=== PATIENT | female | born 1950 | race Caucasian/White ===

== ENCOUNTER 2018-03-30 07:13 | Day surgery (SDC) | payer MEDICARE ==
[2018-03-22 09:27] VITALS: BMI 20.7
[~2018-03-30 07:13] MED LIST: Lactated Ringer's 500 ML IV ONE; Phenylephrine 2.5% Opht Soln OD SCH; Tropicamide 0.5% Opht Sol OD SCH
[2018-03-30] MEDS ORDERED: Tetracaine 0.5% Ophth (OR ONLY) ONE (07:30)
[2018-03-30] MEDS ORDERED: Carbachol 0.01% IO ONE (07:30)
[2018-03-30] MEDS ORDERED: Tobramycin/Dexamethasone OPHT OINT ONE (07:30)
[2018-03-30] MEDS ORDERED: Povidone Iodine Ophthalmic 5% Soln ONE (07:30)
[2018-03-30] MEDS ORDERED: Hyaluronidase Human, Recombi 150 U/ML VIAL ONE (07:31)
[2018-03-30] MEDS ORDERED: Chondroitin/Hyaluronate Opth Syringe KIT (0.55 ml-0.5 ml) IO ONE (07:31)
[2018-03-30] MEDS ORDERED: Lidocaine 2% MPF (5 ml) Inj ONE (07:33)
[2018-03-30] MEDS ORDERED: Lactated Ringer's 1,000 ML IV ONE (08:09)
[2018-03-30] MEDS ORDERED: Propofol 10 mg/ml Inj (20 ML) ONE (09:36)
[2018-03-30] MEDS ORDERED: Midazolam 2 MG/2 ML VIAL ONE (09:36)
[2018-03-30] MEDS ORDERED: Lactated Ringer's 500 ML IV ONE ×2 (10:10)
[2018-03-30 11:53] VITALS: BP 118/58; PULSE 74; RESP 18; TEMP 97.6; O2SAT 98
--- NOTE | 2018-03-30 19:05 | OP ---
Copied To: Aleksander Valdez MD Attending MD: Aleksander Valdez MD PROCEDURE DATE: 03/30/2018 PREOPERATIVE DIAGNOSIS: Hypermature complex cataract, right eye. POSTOPERATIVE DIAGNOSIS: Hypermature complex cataract, right eye. OPERATIVE PROCEDURE: Complex cataract surgery, right eye with lens implant due to hypermaturity. SURGEON: Aleksander Valdez MD ANESTHESIA: Retrobulbar block. ESTIMATED BLOOD LOSS: Zero. COMPLICATIONS: None. DESCRIPTION OF PROCEDURE: The patient was brought to the operating room and properly identified. Anesthesia staff administered intravenous sedation and retrobulbar block was given to the surgical eye. The patient was then prepped and draped in the usual sterile fashion. Attention was turned to the surgical eye. A lid speculum was placed into interpalpebral fissure. Sitting temporally, two paracentesis incisions were made. The anterior chamber was filled with viscoelastic and a triplanar clear corneal incision was made. Using a cystitome, anterior capsular leaflet was created. Utrata forceps were used to create a continuous curvilinear capsulorrhexis. Balanced salt solution on a cannula was used to hydrodissect and hydrodelineate the lens. The lens was then phacoemulsified with no complications. Automated irrigation and aspiration was used to remove the cortex. Viscoelastic was used to deepen the anterior chamber. The lens was placed in the capsular bag. Automated irrigation and aspiration was used to remove the viscoelastic. The anterior chamber was filled with Miochol. The wounds were hydrated with balanced salt solution. There was noted to be no leak at the end of the case and the lens was well positioned. The lid speculum was removed. The eye was given antibiotics and steroids and covered with a patch and shield. The patient was returned to the recovery room in stable condition. ADDENDUM: Due to hypermaturity of cataract, VisionBlue was used to highlight anterior capsule to be able to create a continuous curvilinear capsulorrhexis, which was created with no complication. Aleksander Valdez MD
== END 2018-03-30 11:18 | disposition home or self-care (01) ==
LOC: C.SDS 07:13
PROVIDERS: ATTEND Ophthalmology
DX: E11.36 Type 2 diabetes mellitus with diabetic cataract (principal); H25.21 Age-related cataract, morgagnian type, right eye
CPT/HCPCS: 66982; 82948; J2250; J2704; J3470; J7120

== ENCOUNTER 2018-09-11 09:25 | Outpatient (CLI) | payer MEDICARE | END 2018-09-11 09:26 | disposition home or self-care (01) | LOC: C.MAMMO 09:25 | DX: Z12.31 Encounter for screening mammogram for malignant neoplasm of breast (principal); M81.0 Age-related osteoporosis without current pathological fracture ==